=== PATIENT | female | born 1995 | race African-American/Black ===

== ENCOUNTER 2020-05-01 15:50 | Emergency (ER) | payer MEDICAID ==
[~2020-05-01] VITALS: Ht 165.1 cm; Wt 81.6 kg
[2020-05-01 16:19] VITALS: BP 128/90
--- NOTE | 2020-05-01 16:19 | NUR ---
ED Nurse Note: PT walked in to ed for C/O vaginal discharge with foul odor for about a week. pt reports having a about 3 weeks ago. denies any abd pain.
[2020-05-01] MEDS ORDERED: Azithromycin 250mg tab ORAL ONE (17:00)
[2020-05-01] MEDS ORDERED: Lidocaine 1% MPF 10mg/ml 5ml INJ ONE (17:00)
--- NOTE | 2020-05-01 17:10 | NUR ---
ED Nurse Note: urine sample collected and sent to lab.
[2020-05-01] MEDS ORDERED: Azithromycin 250mg tab ONE (17:14)
--- NOTE | 2020-05-01 17:14 | NUR ---
ED Nurse Note: 1 extra zithromx 250mg tab was taken from [facility] due to pt dropping it on the floor.
[2020-05-01 17:21] LABS: APPEARANCE,URINE CLEAR; BILIRUBIN, URINE NEGATIVE (NEGATIVE); COLOR,URINE PALE YELLOW; GLUCOSE, URINE (UA) NEGATIVE (NEGATIVE); KETONES,URINE NEGATIVE (NEGATIVE); LEUKOCYTE ESTERASE ,URINE NEGATIVE (NEGATIVE); NITRITE,URINE NEGATIVE (NEGATIVE); PH,URINE 7 (4.5-8.0); PROTEIN,URINE NEGATIVE (NEGATIVE); UROBILINOGEN,URINE NORMAL MG/DL (0.0-1.0)
--- NOTE | 2020-05-01 17:34 | NUR ---
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 pt left with out signing discharge paper work.
--- NOTE | 2020-05-01 21:16 | Emergency Room Report ---
History of Present Illness General Chief Complaint: Female Urogenital Problems Source: Patient Present Illness HPI 24-year-old female with no significant past medical history here complaining of 3 weeks for follow-up arrest vaginal discharge after being sexually active without protection. Patient reports that she had a D&C done for 3 weeks ago however reports that she has not resumed her menstruations yet. Reports that she is in no distress. Denies any urinary frequency and urgency. Wants to be treated for chlamydia and gonorrhea. Patient leaves without urine results being back. I had told patient that I will write Flagyl for possible bacterial vaginosis and also treat her with Rocephin and azithromycin at the ED. However patient did not want to wait as she had to go pickle processor her daughter. Patient left without a prescription for flagyl. Allergies: Coded Allergies: No Known Allergies (Unverified , 05/01/20) COVID-19 Screening Contact w/high risk pt: No Experienced COVID-19 symptoms?: No COVID-19 Testing performed PIPELINE INSPECTOR: No Patient History Past Medical History: see triage record Past Surgical History: none Pertinent Family History: none Last Menstrual Period: 02/22 Now: No Immunizations: UTD Reviewed Nursing Documentation: PMH: Agreed; PSxH: Agreed Nursing Documentation-PMH Past Medical History: No Stated History Review of Systems All Other Systems: negative except mentioned in HPI Physical Exam Vital Signs Date Time Temp Pulse Resp B/P (MAP) Pulse Ox O2 Delivery O2 Flow Rate FiO2 05/01/20 16:16 98.8 69 14 132/93 (106) 99 Room Air Sp02 EP Interpretation: reviewed, normal General Appearance: no apparent distress, alert, GCS 15, non-toxic Head: normocephalic, atraumatic Eyes: bilateral eye normal inspection, bilateral eye PERRL ENT: hearing grossly normal, normal pharynx, no angioedema, normal voice Neck: full range of motion, supple/symm/no masses Respiratory: chest non-tender, lungs clear, normal breath sounds, speaking full sentences Cardiovascular #1: regular rate, rhythm, no edema Gastrointestinal: normal bowel sounds, non tender, soft, non-distended, no guarding, no rebound Genitourinary: no CVA tenderness, deferred Musculoskeletal: back normal Neurologic: alert, motor strength/tone normal, oriented x3, sensory intact, responsive, speech normal Psychiatric: judgement/insight normal, memory normal, mood/affect normal, no suicidal/homicidal ideation Skin: no rash Lymphatic: no adenopathy Medical Decision Making PA Attestation All my diagnosis and treatment plans were reviewed ad discussed with my supervising physician Dr. Landeros Diagnostic Impression: Primary Impression: Vaginitis ER Course 24-year-old female with no significant past medical history here complaining of 3 weeks for follow-up arrest vaginal discharge after being sexually active without protection. Patient reports that she had a D&C done for 3 weeks ago however reports that she has not resumed her menstruations yet. Reports that she is in no distress. Denies any urinary frequency and urgency. Wants to be treated for chlamydia and gonorrhea. Patient leaves without urine results being back. I had told patient that I will write Flagyl for possible bacterial vaginosis and also treat her with Rocephin and azithromycin at the ED. However patient did not want to wait as she had to go pickle processor her daughter. Patient left without a prescription for flagyl. Ddx considered but are not limited to: vaginitis, yeast infection, BV, chlamydia, Gonorrhea, syphilis, HIV, herpes 1 or 2, UTI Vital signs: are WNL, pt. is afebrile H&PE are most consistent with : Vaginitis ORDERS: UA, urince cx, urine test, patient left without prescription for Flagyl ED INTERVENTIONS: Rocephin IM, azithromycin p.o. Patient left without getting a prescription for Flagyl and without urine results being back DISCHARGE: At this time pt. is stable for d/c to home. Will provide printed patient care instructions, and any necessary prescriptions. Care plan and follow up instructions have been discussed with the patient prior to discharge. Last Vital Signs Date Time Temp Pulse Resp B/P (MAP) Pulse Ox O2 Delivery O2 Flow Rate FiO2 05/01/20 16:19 98.2 86 15 128/90 98 Room Air Disposition: HOME, SELF-CARE Condition: Stable Referrals: NON PHYSICIAN (PCP) Briana Rodriguez May 01, 2020 21:16
== END 2020-05-01 17:34 | disposition home or self-care (01) ==
LOC: EMR 16:45
DX: N76.0 Acute vaginitis (principal)
CPT/HCPCS: 81003; 81025; 96372; J0696; Q0144; Z7502; 99283